=== PATIENT | female | born 1940 | race Caucasian/White ===

== ENCOUNTER 2019-06-05 12:40 | Inpatient (IN) ==
[2019-06-06] MEDS ORDERED: Dextrose Gel 15 GM/37.5 ML TUBE PO PRN ×2 (14:06)
[2019-06-06] MEDS ORDERED: *HR* Dextrose 50 % in Water (Syg) 50 ML SYRINGE IVP PRN (14:06)
[2019-06-06] MEDS ORDERED: D5% in Water 1,000 ML IVC PRN (14:07)
[2019-06-06] MEDS ORDERED: Fluticasone Propionate Nasal 50 MCG/SPRAY BOTTLE NS PRN (14:09)
[2019-06-06] MEDS: *HR* OxyCODONE Immed Rel 5 MG TABLET PO PRN ×2 (15:33→21:24)
[2019-06-06] MEDS: Insulin LISPRO 300 UNITS/3 ML VIAL SQ SCH (17:07)
[2019-06-06] MEDS ORDERED: Aspirin Enteric Coated 81 MG Tablet PO SCH (21:00)
[2019-06-06] MEDS: *HR* LORazepam 0.5 MG TABLET PO SCH (21:24)
[2019-06-06] MEDS: Famotidine 20 MG TABLET PO SCH (21:24)
[2019-06-07 05:48] LABS: Basophils % 0.3 %; Eosinophils # 0.1 K/mcL (0.0-0.6); Eosinophils % 0.8 %; Hematocrit 32.8 % (35.3-44.9); Hemoglobin 10.9 g/dL (11.5-15.4); Immature Granulocytes % 0.5 % (0-4); Lymphocytes # 1.8 K/mcL (0.6-4.6); Lymphocytes % 17.7 %; Mean Corpuscular HGB Conc 33.2 g/dL (31.6-35.5); Mean Corpuscular Hemoglobin 30.8 pg (28.0-33.3); Mean Corpuscular Volume 92.7 fL (83.0-100.0); Mean Platelet Volume 9.6 fL (9.4-12.4); Monocytes # 0.9 K/mcL (0.0-1.3); Monocytes % 8.5 %; Neutrophils # 7.4 K/mcL (1.6-8.9); Platelet Count 215 K/mcL (140-400); Red Blood Count 3.54 M/mcL (3.82-4.97); Red Cell Distribution Width 13.1 % (11.5-14.5); Segmented Neutrophils % 72.2 %; White Blood Count 10.2 K/mcL (4.3-11.1)
[2019-06-07 06:12] LABS: Alanine Aminotransferase 37 Units/L (7-52); Albumin 3.4 g/dL (3.5-5.7); Albumin/Globulin Ratio 1.5 (1.1-2.2); Alkaline Phosphatase 140 Units/L (34-104); Aspartate Amino Transferase 24 Units/L (13-39); BUN/Creatinine Ratio 20 (6-26); Bilirubin,Total 0.6 mg/dL (0.3-1.0); Blood Urea Nitrogen 12 mg/dL (8-23); Calcium 8.9 mg/dL (8.6-10.3); Carbon Dioxide 27 mEq/L (23-29); Chloride 102 mEq/L (98-107); Globulin 2.3 g/dL (2.4-3.5); Glucose 127 mg/dL (70-105); Osmolality,Calculated 287 (280-300); Potassium 3.4 mEq/L (3.5-5.1); Sodium 138 mEq/L (136-145); Total Protein 5.7 g/dL (6.4-8.9); eGFR For African Americans > 60 (> 60); eGFR For Non-African Americans > 60 (> 60)
[2019-06-07] MEDS: *HR* OxyCODONE Immed Rel 5 MG TABLET PO PRN ×3 (06:31→18:30)
[2019-06-07] MEDS: *HR* Enoxaparin 40 MG/0.4 ML SYRINGE SQ SCH (06:32)
[2019-06-07] MEDS: Insulin LISPRO 300 UNITS/3 ML VIAL SQ SCH ×3 (08:08→17:00)
[2019-06-07] MEDS: *HR* Metformin 500 MG TABLET PO SCH (08:12)
[2019-06-07] MEDS: Multivit/Ca/Min/Fe/FA 1 TAB TABLET PO SCH (08:13)
[2019-06-07] MEDS: Verapamil ER (24 HR) 120 MG TABLET.ER PO SCH (10:48)
[2019-06-07] MEDS: *HR* LORazepam 0.5 MG TABLET PO SCH (22:41)
[2019-06-07] MEDS: Famotidine 20 MG TABLET PO SCH (22:42)
[2019-06-08] MEDS: *HR* OxyCODONE Immed Rel 5 MG TABLET PO PRN ×3 (03:23→17:04)
[2019-06-08] MEDS: *HR* Enoxaparin 40 MG/0.4 ML SYRINGE SQ SCH (05:59)
[2019-06-08] MEDS: Insulin LISPRO 300 UNITS/3 ML VIAL SQ SCH ×3 (07:44→16:43)
[2019-06-08] MEDS: *HR* Metformin 500 MG TABLET PO SCH (08:31)
[2019-06-08] MEDS: Multivit/Ca/Min/Fe/FA 1 TAB TABLET PO SCH (08:31)
[2019-06-08] MEDS: Verapamil ER (24 HR) 120 MG TABLET.ER PO SCH (08:31)
[2019-06-08] MEDS: Famotidine 20 MG TABLET PO SCH (21:11)
[2019-06-08] MEDS: *HR* LORazepam 0.5 MG TABLET PO SCH (21:11)
[2019-06-09] MEDS: *HR* OxyCODONE Immed Rel 5 MG TABLET PO PRN ×3 (04:33→20:24)
[2019-06-09] MEDS: *HR* Enoxaparin 40 MG/0.4 ML SYRINGE SQ SCH (04:34)
[2019-06-09] MEDS: Insulin LISPRO 300 UNITS/3 ML VIAL SQ SCH ×3 (07:43→17:29)
[2019-06-09] MEDS: Verapamil ER (24 HR) 120 MG TABLET.ER PO SCH (08:04)
[2019-06-09] MEDS: *HR* Metformin 500 MG TABLET PO SCH (08:04)
[2019-06-09] MEDS: Multivit/Ca/Min/Fe/FA 1 TAB TABLET PO SCH (08:05)
[2019-06-09] MEDS: Famotidine 20 MG TABLET PO SCH (20:23)
[2019-06-09] MEDS: *HR* LORazepam 0.5 MG TABLET PO SCH (20:24)
[2019-06-10] MEDS: *HR* Enoxaparin 40 MG/0.4 ML SYRINGE SQ SCH (05:54)
[2019-06-10] MEDS: *HR* OxyCODONE Immed Rel 5 MG TABLET PO PRN ×2 (05:54→16:26)
[2019-06-10] MEDS: *HR* Metformin 500 MG TABLET PO SCH (08:53)
[2019-06-10] MEDS: Insulin LISPRO 300 UNITS/3 ML VIAL SQ SCH ×3 (08:54→17:31)
[2019-06-10] MEDS: Multivit/Ca/Min/Fe/FA 1 TAB TABLET PO SCH (08:54)
[2019-06-10] MEDS: Verapamil ER (24 HR) 120 MG TABLET.ER PO SCH (08:54)
[2019-06-10] MEDS: Famotidine 20 MG TABLET PO SCH (21:07)
[2019-06-10] MEDS: *HR* LORazepam 0.5 MG TABLET PO SCH (21:08)
[2019-06-11] MEDS: *HR* Enoxaparin 40 MG/0.4 ML SYRINGE SQ SCH (06:33)
[2019-06-11] MEDS: *HR* OxyCODONE Immed Rel 5 MG TABLET PO PRN ×2 (06:33→16:57)
[2019-06-11] MEDS: Insulin LISPRO 300 UNITS/3 ML VIAL SQ SCH ×3 (07:51→16:51)
[2019-06-11] MEDS: Multivit/Ca/Min/Fe/FA 1 TAB TABLET PO SCH (10:00)
[2019-06-11] MEDS: Verapamil ER (24 HR) 120 MG TABLET.ER PO SCH (10:00)
[2019-06-11] MEDS: *HR* Metformin 500 MG TABLET PO SCH (10:01)
[2019-06-11] MEDS: *HR* LORazepam 0.5 MG TABLET PO SCH (20:28)
[2019-06-11] MEDS: Famotidine 20 MG TABLET PO SCH (20:28)
[2019-06-12] MEDS: *HR* OxyCODONE Immed Rel 5 MG TABLET PO PRN (04:01)
[2019-06-12] MEDS: *HR* Enoxaparin 40 MG/0.4 ML SYRINGE SQ SCH (04:02)
[2019-06-12] MEDS: Insulin LISPRO 300 UNITS/3 ML VIAL SQ SCH ×2 (08:44→11:04)
[2019-06-12 08:45] VITALS: BP 154/77
[2019-06-12] MEDS: *HR* Metformin 500 MG TABLET PO SCH (09:21)
[2019-06-12] MEDS: Multivit/Ca/Min/Fe/FA 1 TAB TABLET PO SCH (09:21)
[2019-06-12] MEDS: Verapamil ER (24 HR) 120 MG TABLET.ER PO SCH (09:21)
== END 2019-06-12 11:32 | disposition home health service (06) | DRG 560 ==
LOC: INPGRE 06-06 13:17
PROVIDERS: ADMIT Family Medicine; ATTEND Family Medicine